=== PATIENT | female | born 1950 | race Caucasian/White ===

== ENCOUNTER 2018-04-12 09:38 | Day surgery (SDC) | payer MEDICARE, SELFPAY ==
[2018-04-12] VITALS (9 sets, daily range): BP systolic 86–116; BP diastolic 50–72; PULSE 65–85; RESP 10–15; TEMP 36.3–36.7; O2SAT 98–100; BMI 25.7
[2018-04-12] MEDS: SODIUM CHLORIDE 0.9% 1,000 ML 200 ML IV ×2 (10:10→13:51)
--- NOTE | 2018-04-12 12:10 | PM.HP.1 ---
History of Present Illness Date Patient Seen: 04/12/18 Time Patient Seen: 12:10 Chief complaint: colonoscopy [id number] Narrative: Patient is woman who last had a colonoscopy 7 years ago. She has had polyps removed in the past. She is here for screening exam. Patient History Medical History Gastroesophageal reflux disease (Chronic) Bursitis (Resolved) Surgical History H/O eye surgery (Resolved) H/O repair of left rotator cuff (Resolved) History of lumbar discectomy (Resolved) Family & Social History Family History: Reviewed 04/12/18 by Anastacio Pichardo MD Social History: household members spouse Tobacco & Substance use: Smoking Status Never smoker Meds Home Medications Medication Instructions Recorded Confirmed Type multivitamin tablet 1 tab PO DAILY 04/11/18 04/11/18 History sulfamethoxazole 800 1 tab PO BID 7 Days #14 tab 04/11/18 Rx mg-trimethoprim 160 mg tablet omeprazole 20 mg PO DAILY 04/12/18 04/12/18 History Allergies Allergy/AdvReac Type Severity Reaction Status Date / Time clindamycin [CLINDAMYCIN] Allergy Severe heart burn Verified 04/12/18 10:10 amoxicillin [AMOXICILLIN] Allergy Mild itchy Verified 04/12/18 10:03 Review of Systems Review of Systems All systems reviewed & are unremarkable except as noted in HPI and below Exam Vital Signs (past 8 hours): - 04/12/18 10:02 Temperature 97.4 F L Pulse Rate 77 Respiratory Rate 15 Blood Pressure 116/72 Pulse Oximetry 99 Oxygen Delivery Method Room Air Narrative Exam Narrative: Operative no apparent distress. Lungs are clear to auscultation no rales or rhonchi heart regular rate and rhythm with no murmur or gallop. Abdomen is protuberant soft nontender without mass. Liver and spleen not enlarged. Patient is alert and oriented x3. Assessment & Plan (1) Screening for colon cancer: Current visit: Yes Status: Acute Plan: Assessment/Plan Narrative: Will perform colonoscopy. I have discussed the procedure and the rationale with the patient including risks of bleeding, perforation which would necessitate a major operation, failure to find remove all lesions and the potential to tattoo. They appeared to understand and wished to proceed.
--- NOTE | 2018-04-12 12:15 | PM.PREOP ---
Pre-operative Note Interval Note Pre-op Check: History & Physical exam performed today H&P completed within 30 days and has changed as indicated here:: None ASA Class (for procedural sedation): I
[2018-04-12] MEDS: MIDAZOLAM 5 MG/5 ML VIAL IV (12:36)
[2018-04-12] MEDS: fentaNYL 250 MCG/5 ML INJ IV (12:37)
--- NOTE | 2018-04-12 12:48 | P.OP.ENDO_ITS ---
Operative Date/Time/Diagnoses Date of procedure: 04/12/18 Time of procedure: 12:46 Pre-op diagnosis: Screening examination. History of polyps. Last exam 7 years ago. Post-op diagnosis: same (Diverticulosis scattered throughout the colon. Internal hemorrhoids.) Procedure & Clinicians Study performed: Colonoscopy Same procedure as scheduled: Yes Indications: Screening Surgeon: Anastacio Pichardo Procedure Notes SCOAP/Timeout: Performed Procedure in detail: The patient was placed in the left lateral decubitus position and underwent IV sedation directed by the surgeon consisting of fentanyl and Versed. Digital exam was unremarkable. The scope was inserted and advanced through the rectum into the sigmoid, descending, transverse, and ascending colon. The patient was noted to have diverticula scattered throughout the colon. The have a his concentration was in the sigmoid colon.. The cecum was reached identified by the ileocecal valve and the appendiceal opening. The ileocecal valve was successfully cannulated. The terminal ileum was normal in appearance. The scope was gradually brought out. No Polyps were found. The scope ultimately was retroflexed in the rectum. The appearance was[ remarkable for moderately large hemorrhoids.]. The scope was removed and the patient tolerated the procedure well Scope withdrawal time: 8 min Sedation minutes: 20 Findings: diverticulosis (Colmenares colonic) and internal hemorrhoids Specimen(s): none sent Complications: none Recommendations: Colonscopy in 5 years (Due to personal history of polyps) Follow up: as needed Disposition: PACU
--- NOTE | 2018-04-12 13:43 | SUR.PHASEII ---
has been dozing, HOB up, coffee given. Oriented, Spouse present.
--- NOTE | 2018-04-12 14:03 | SUR.PHASEII ---
[address] Pichardo regarding hypotension, Pt assymptomatic, color pink, sitting up and talking, drinking coffee, Give IV fluid bolus of 500 ml and then DC per MD. Attempted to edit infusion rate, but unsure how.
--- NOTE | 2018-04-12 14:08 | SUR.PHASEII ---
1335 late entry Drowsy, oriented, denies pain, light-headedness or dizziness. Drinking coffee. No concerns voiced. Wants to eat yi toast and nap.
== END 2018-04-12 14:51 | disposition home or self-care (01) ==
PROVIDERS: Visit Provider Specialist
PROC: 0DJD8ZZ Inspection of Lower Intestinal Tract, Via Natural or Artificial Opening Endoscopic (ICD-10-PCS; CPT 45378; principal; 2018-04-12 10:45)
DX: Z12.11 Encounter for screening for malignant neoplasm of colon (principal); Z86.010 Personal history of colon polyps; K57.30 Diverticulosis of large intestine without perforation or abscess without bleeding; K64.8 Other hemorrhoids
CPT/HCPCS: 45378; 99152; J2250; J3010

== ENCOUNTER → 2018-10-09 07:50 | Outpatient (CLI) | payer MEDICARE, SELFPAY ==
--- NOTE | 2018-10-09 | DI.MG.S_ITS ---
BILATERAL DIGITAL SCREENING MAMMOGRAM 3D/2D WITH CAD: 10/09/2018 CLINICAL: Routine screening. Family history of breast cancer. Comparison is made to exams dated: 08/21/2017 mammogram, 07/06/2016 mammogram, and 02/02/2015 mammogram - [facility]. There are scattered fibroglandular elements in both breasts. Current study was also evaluated with a Computer Aided Detection (CAD) system. No significant masses, calcifications, or other findings are seen in either breast. There has been no significant interval change. IMPRESSION: NEGATIVE There is no mammographic evidence of malignancy. A 1 year screening mammogram is recommended. This exam was interpreted at Station ID: [id number]. NOTE: For mammograms, a report in lay terms will be sent to the patient. Approximately 15% of breast malignancies will not be visualized mammographically. In the management of a palpable breast mass, a negative mammogram must not discourage biopsy of a clinically suspicious lesion. Electronically Signed By: Mandi kamara/ellen:10/09/2018 10:17:14 letter sent: Normal Exam ACR BI-RADS Category 1: Negative [id number]
== END ==
DX: Z12.31 Encounter for screening mammogram for malignant neoplasm of breast (principal); Z80.3 Family history of malignant neoplasm of breast
CPT/HCPCS: 77063; 77067

== ENCOUNTER → 2019-01-01 11:01 | Outpatient (CLI) | payer MEDICARE, SELFPAY ==
--- NOTE | 2019-01-01 | DI.RAD.S_ITS ---
PROCEDURE: FL HIP INJECTION MR/CT RT INDICATIONS: Patient reports a history of right hip pain and posterior right lower back pain. TECHNIQUE: The indications, alternatives, benefits, risks, and complications of the procedure were explained to the patient. Written informed consent was obtained and placed in the chart. The hip was examined fluoroscopically with the legs fixed in slight internal rotation, and a site for needle placement chosen for entry into the hip joint from an anterior approach. Care was taken to locate the common femoral artery and vein beforehand. The skin was prepped and draped in a sterile fashion, and 1% Lidocaine infiltrated from skin down to joint capsule. A spinal needle was inserted into the joint, and a small amount of iodinated contrast media injected to confirm intra-articular placement of the needle tip. This was followed by approximately 10 mL dilute solution of a gadolinium containing MR contrast agent. The needle was removed and a dressing was applied. After the procedure, the patient reported a sensation of right thigh numbness when she said made walking difficult. The patient denied any pain or other symptomatology. The patient was given postprocedural instructions and taken to the MR suite by wheelchair for an MRI. The patient was reevaluated by Dr. Kramer approximately 30 minutes post procedure, after her MRI had been completed. Patient reported the sensation of thigh numbness with decreased from before, with the patient now being able to carefully stand. Patient was advised not to drive, and subsequently called her to pick her up. The patient was advised to followup with her referring clinical provider, and the patient was also advised to monitor her symptoms and to go to an emergency department for evaluation should her symptoms worsen or new symptoms develop. FINDINGS: A single fluoroscopic spot image demonstrates intra-articular location of injected iodinated contrast. There is also a small volume of contrast that is external to the patient. IMPRESSION: Fluoroscopically guided administration of dilute Gadolinium solution into the right hip joint for MR arthrogram. Dictated by: Cecil Kramer M.D. on 01/01/2019 at 14:02 Approved by: Cecil Kramer M.D. on 01/01/2019 at 14:13
--- NOTE | 2019-01-01 11:03 | DI.MRI.S_ITS ---
PROCEDURE: MR HIP RT W CON INDICATIONS: Rt hip pain, Rule out Labral tear TECHNIQUE: After the administration of 10 mL of dilute intra-articular Gadolinium contrast, coronal STIR of the bony pelvis; coronal and oblique axial T1 spin echo with fat saturation, axial T2 fast spin echo with fat saturation, sagittal T1 spin echo with and without fat saturation of the involved hip. COMPARISON: None. FINDINGS: Image quality: Diagnostic. Bones and joints: There is no acute fracture, dislocation, or suspicious osseous lesion identified involving the osseous structures of the right hip. Moderate degenerative changes of the right hip are present with heterogeneity of the superior hyaline articular cartilage and mild associated irregularity of the cartilage. There likely are small defects of the hyaline articular cartilage. Moderate-sized peripheral osteophytes are present involving the femoral head into the acetabulum. No evidence of avascular necrosis is appreciated. There is adequate distention of the right hip joint with the injected contrast. No loose intra-articular joint bodies are appreciated. The L. single left at the right femoral head measures approximately 58?. The remainder of the image osseous structures of the included pelvis demonstrate bony fusion of the L4-5 vertebral bodies, which appears to be congenital, but is not well characterized. There appears to be fusion of the L5 transverse processes with the adjacent sacral ala. There are [id number] degenerative changes of the lumbosacral spine, pubis symphysis, and left hip. No acute pelvic fractures or suspicious osseous lesions are evident. Labrum: There is a moderate to large superior labral tear extending from the 9 o'clock position (anterior) through the 12 o'clock position (superior) and to at least the 3 o'clock position (posterior). No detectable fragments are identified. Tendons and ligaments: The ligamentum teres is somewhat heterogeneous, but probably intact. There is increased signal and mild thickening involving the distal right gluteus medius angle is minimus tendons. No significant fluid is contained within the greater trochanteric bursa. However, there is mild thickening of the bursa. Mild increased signal is noted involving the proximal right hamstrings tendons. There is also slight increased signal identified involving the distal iliopsoas tendons. Contrast material extending into the bursa is likely iatrogenic related to the injection. Soft tissues: Visualized muscles demonstrate normal bulk and internal signal. Quadratus femoris muscle demonstrates no internal edema to suggest ischiofemoral impingement. The proximal sciatic neurovascular bundle appears normal adjacent to the hamstring tendons. No free pelvic fluid. Bladder wall thickness is normal. There appears to be fibroids within the uterus, which are not well characterized. Genitourinary structures and bowel loops appear normal where visualized. IMPRESSION: 1. Moderate degenerative changes of the right hip without an acute fracture. 2. Moderate to large superior right acetabular labral tear. 3. Mild distal right gluteus medius and gluteus minimus tendinopathy. 4. Mild proximal hamstrings and distal iliopsoas tendinopathy. 5. 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 6. Probable uterine fibroids. The need for better evaluation utilizing pelvic ultrasonography may be determined clinically. Dictated by: Anmol Gamboa M.D. on 01/01/2019 at 16:07 Approved by: Anmol Gamboa M.D. on 01/01/2019 at 16:14
== END ==
PROVIDERS: PCP Family Medicine; Visit Provider Family Medicine
DX: M25.551 Pain in right hip (principal); S73.191A Other sprain of right hip, initial encounter; M16.11 Unilateral primary osteoarthritis, right hip; M67.88 Other specified disorders of synovium and tendon, other site; Z98.1 Arthrodesis status
CPT/HCPCS: 27093; 73722; 77002

== ENCOUNTER → 2019-02-26 14:04 | Outpatient (CLI) | payer MEDICARE, SELFPAY ==
--- NOTE | 2019-02-26 14:08 | DI.RAD.S_ITS ---
PROCEDURE: XR FOOT LT MIN 3V INDICATIONS: L foot pain TECHNIQUE: 3 views of the foot were acquired. COMPARISON: None. FINDINGS: Bones: No fractures or dislocations. No suspicious bony lesions. Soft tissues: No tibiotalar joint effusion. Achilles tendon appears normal. IMPRESSION: No trauma found, source of asymmetric left foot pain is not identified. Dictated by: Lacho Waite M.D. on 02/26/2019 at 15:06 Approved by: Lacho Waite M.D. on 02/26/2019 at 15:06
== END ==
PROVIDERS: PCP Family Medicine; Visit Provider Family Medicine
DX: M79.672 Pain in left foot (principal)
CPT/HCPCS: 73630

== ENCOUNTER → 2019-03-04 07:46 | Outpatient (CLI) | payer MEDICARE, SELFPAY ==
--- NOTE | 2019-03-04 07:48 | DI.MRI.S_ITS ---
PROCEDURE: MR LUMBAR SPINE WO CON INDICATIONS: Ongoing right hip pain, sometimes with radiation into right leg. As requested by PT. TECHNIQUE: Noncontrast sagittal T1 spin echo and T2 fast echo, sagittal STIR, axial T1 and T2 fast spin echo through the lumbar spine. In cases with scoliosis, additional coronal T2 fast spin echo may be performed. COMPARISON: None. FINDINGS: Image quality: Excellent. Alignment and Curvature: There is mild grade 1 anterolisthesis seen at the L3-L4 level. No definite associated pars defects are seen. Bone Marrow: Marrow is of normal overall signal. No acute vertebral body compression fractures. Spinal Cord: Conus medullaris terminates at the T12-L1 level. Visualized cord demonstrates normal signal and size. Paraspinous Soft Tissues: No paravertebral masses. T12-L1: Normal appearance. L1-L2: Normal appearance. L2-L3: The disc height is well-preserved. Loss of disc signal is seen at this level. Moderate disc bulge is seen, which is eccentric to the right. Moderate facet joint hypertrophy is seen. There is associated moderate hypertrophy of the ligamentum flavum. There is mild to moderate left-sided and moderate right-sided neural foraminal narrowing. Moderate central canal narrowing is seen, as on series 5 image 14. L3-L4: The disc height is well-preserved. Loss of disc signal is seen at this level. Mild to moderate disc bulge is seen. Prominent facet hypertrophy is seen, with associated moderate hypertrophy of the ligamentum flavum. There is at least moderate bilateral neural foraminal narrowing seen, left worse than right. There is a mild degree of compression seen upon the exiting left L3 nerve root. Moderate to severe central canal narrowing is seen. L4-L5: Remote postoperative change is seen at this level, with discectomy and partial vertebral body fusion. There has been removal of portions of the posterior elements. Moderate bilateral neural foraminal narrowing is seen. The central canal is widely patent. L5-S1: The disc height is well-preserved. Loss of disc signal is seen at this level. No significant disc bulge is seen. Minimal to mild facet hypertrophy is seen. No significant neural foraminal or central canal narrowing can be seen. IMPRESSION: Remote postoperative change at the L4-L5 level, with discectomy and removal of portions of the posterior elements. Vertebral body fusion can be seen at this level. Degenerative changes are seen, which are most prominent at the L3-L4 level, where there is grade 1 anterolisthesis, moderate to severe central canal narrowing, at least moderate bilateral neural foraminal narrowing, and a mild degree of compression upon the exiting left L3 nerve root. Dictated by: Jr Bhatia M.D. on 03/04/2019 at 9:43 Approved by: Jr Bhatia M.D. on 03/04/2019 at 9:49
== END ==
PROVIDERS: PCP Family Medicine; Visit Provider Family Medicine
DX: M25.551 Pain in right hip (principal); M47.26 Other spondylosis with radiculopathy, lumbar region; M43.16 Spondylolisthesis, lumbar region
CPT/HCPCS: 72148

== ENCOUNTER → 2019-03-13 07:15 | Outpatient (CLI) | payer MEDICARE, SELFPAY ==
[2019-03-13 08:09] LABS: Add Manual Diff / Slide Review NO; Basophils Absolute Auto 0 /uL (0-100); Basophils Percent Auto 0.8 % (0-2); Eosinophils Absolute Auto 200 /uL (0-450); Eosinophils Percent Auto 4.2 % (2-4); Hematocrit 34.9 % (36-46); Hemoglobin 11.9 g/dL (12.0-16.0); Lymphocytes Absolute Auto 1800 /uL (1100-4500); Mean Corpuscular HGB Conc 34.1 % (30-36); Mean Corpuscular Hemoglobin 30.1 PG (26-34); Mean Corpuscular Volume 88.4 fL (80-100); Monocytes Absolute Auto 400 /uL (0-900); Monocytes Percent Auto 8.5 % (3-14); Neutrophils Absolute Auto 2200 /uL (1500-7000); Neutrophils Percent Auto 47.5 % (50-75); Platelet Count 336 X10^3/uL (150-400); Red Blood Cell Count 3.95 X10^6/uL (4.0-5.2); Red Cell Distribution Width 14.4 % (11.6-14.8); White Blood Cell Count 4.7 X10^3/uL (4.5-11.0)
[2019-03-13 08:14] LABS: Alanine Aminotransferase 30 IU/L (9-52); Albumin 4.3 g/dL (3.5-5.0); Albumin Globulin Ratio 1.3 (1.0-2.8); Alkaline Phosphatase 47 U/L (38-126); Aspartate Aminotransferase 41 IU/L (14-36); BUN Creatinine Ratio 33.8 (6-22); Bilirubin Total 0.7 mg/dL (0.2-1.3); Blood Urea Nitrogen 27 mg/dL (7-17); Calcium 9.4 mg/dL (8.4-10.2); Carbon Dioxide 31 mmol/L (22-32); Chloride 103 mmol/L (98-107); Cholesterol 261 mg/dL (140-199); Estimated Glomerular Filt Rate > 60.0 mL/min (>60); Globulin 3.3 g/dL (1.7-4.1); Glucose 92 mg/dL (80-110); HDL Cholesterol 50 mg/dL (40-60); HEMOLYSIS < 15 (0-50); LDL Cholesterol Calculated 188 mg/dL (<100); Potassium 4.5 mmol/L (3.4-5.1); Sodium 140 mmol/L (137-145); Total Protein 7.6 g/dL (6.3-8.2); Triglycerides 116 mg/dL (35-150)
[2019-03-13 08:22] LABS: Appearance Urine UA CLEAR; Bilirubin Urine UA NEGATIVE (NEGATIVE); Color Urine UA YELLOW; Glucose Urine UA NEGATIVE (Negative); Ketones Urine UA NEGATIVE (NEGATIVE); Leukocyte Esterase Urine UA NEGATIVE (NEGATIVE); Nitrite Urine UA NEGATIVE (Negative); Occult Blood Urine UA 2+ (Negative); Protein Urine UA NEGATIVE (Negative); Specific Gravity Urine UA 1.025 (1.000-1.035); Urobilinogen Urine UA 0.2 E.U./dL (0.2)
[2019-03-13 09:10] LABS: Thyroid Stimulating Hormone 6.17 uIU/mL (0.47-4.68)
== END ==
PROVIDERS: PCP Family Medicine; Visit Provider Family Medicine
DX: Z13.220 Encounter for screening for lipoid disorders (principal); Z13.29 Encounter for screening for other suspected endocrine disorder; Z51.81 Encounter for therapeutic drug level monitoring
CPT/HCPCS: 36415; 80053; 80061; 81003; 84443; 85025

== ENCOUNTER → 2019-03-20 12:11 | Outpatient (CLI) | payer MEDICARE, SELFPAY ==
--- NOTE | 2019-03-20 | DI.MRI.S_ITS ---
PROCEDURE: MRFOOT LT WO CON INDICATIONS: Other specified joint disorders, unspecified joint TECHNIQUE: Noncontrast sagittal T1 spin echo and T2 fast spin echo with fat saturation, long-axis T1 spin echo and T2 fast spin echo with fat saturation, short-axis T1 spin echo and T2 fast spin echo with fat saturation through the forefoot. COMPARISON: [facility], MR, FOOT W&WO CONTRAST, 01/16/2017, 14:16. FINDINGS: Image quality: Diagnostic. Bones and joints: No acute fracture, dislocation, or suspicious osseous lesions identified involving the osseous structures of the knee left midfoot or forefoot. Mild to moderate degenerative changes are noted involving the 1st metatarsophalangeal joint. There is a subtle erosion evident along the medial aspect of the 1st metatarsal head with associated reactive marrow edema. No hallux valgus is present. Mild degenerative changes are noted involving the interphalangeal joints of the toes. There is degenerative change evident along the medial aspect of the cuboid. There are mild degenerative changes of the talonavicular joint. No significant joint effusions are appreciated. Bony alignment is within normal limits. Soft tissues: Soft tissue edema is identified overlying the forefoot, which is centered about the 1st metatarsophalangeal joint. No drainable or loculated fluid collections are present. No soft tissue masses are evident. The intrinsic muscles of the foot are within normal limits without significant atrophy. The flexor and extensor tendons are intact. Specifically, the distal margin of the flexor hallucis longus tendon appears to be intact. There is fluid contained within the flexor hallucis longus tendon sheath. The remainder of the tendons of the foot are within normal limits. The Lisfranc ligament is not adequately seen. IMPRESSION: 1. Mild to flexor hallucis longus tenosynovitis. There is no significant tearing or tendinopathy of the imaged portions of the tendon. 2. Moderate degenerative changes of the 1st metatarsophalangeal joint. A subtle overhanging erosion is present, which does raise the suspicion for possible gout and clinical correlation is recommended. Dictated by: Anmol Gamboa M.D. on 03/20/2019 at 13:11 Approved by: Anmol Gamboa M.D. on 03/20/2019 at 13:27
== END ==
PROVIDERS: PCP Family Medicine; Visit Provider Podiatrist
DX: M25.80 Other specified joint disorders, unspecified joint (principal); M65.872 Other synovitis and tenosynovitis, left ankle and foot
CPT/HCPCS: 73718

== ENCOUNTER → 2019-05-08 14:00 | Outpatient (CLI) | payer MEDICARE, SELFPAY ==
[2019-05-08 14:46] LABS: BUN Creatinine Ratio 32.9 (6-22); Blood Urea Nitrogen 23 mg/dL (7-17); Estimated Glomerular Filt Rate > 60.0 mL/min (>60)
== END ==
PROVIDERS: Family Provider Family Medicine; PCP Family Medicine; Visit Provider Psychiatry & Neurology Neurology
DX: Z51.81 Encounter for therapeutic drug level monitoring (principal)
CPT/HCPCS: 36415; 82565; 84520

== ENCOUNTER → 2019-06-14 08:17 | Outpatient (CLI) | payer MEDICARE, SELFPAY ==
[2019-06-14 09:18] LABS: Alanine Aminotransferase 47 IU/L (9-52); Albumin 4.3 g/dL (3.5-5.0); Albumin Globulin Ratio 1.3 (1.0-2.8); Alkaline Phosphatase 51 U/L (38-126); Aspartate Aminotransferase 56 IU/L (14-36); BUN Creatinine Ratio 32.9 (6-22); Bilirubin Total 0.8 mg/dL (0.2-1.3); Blood Urea Nitrogen 23 mg/dL (7-17); Calcium 9.6 mg/dL (8.4-10.2); Carbon Dioxide 30 mmol/L (22-32); Chloride 102 mmol/L (98-107); Cholesterol 173 mg/dL (140-199); Estimated Glomerular Filt Rate > 60.0 mL/min (>60); Globulin 3.2 g/dL (1.7-4.1); Glucose 88 mg/dL (80-110); HDL Cholesterol 52 mg/dL (40-60); HEMOLYSIS < 15 (0-50); LDL Cholesterol Calculated 99 mg/dL (<100); Potassium 4.9 mmol/L (3.4-5.1); Sodium 141 mmol/L (137-145); Total Protein 7.5 g/dL (6.3-8.2); Triglycerides 110 mg/dL (35-150)
[2019-06-14 09:35] LABS: Free T3, Triiodothyronine Free 3.23 pg/mL (2.77-5.27); Free T4, Direct Thyroxine 0.98 ng/dL (0.78-2.19)
[2019-06-14 09:48] LABS: Thyroid Stimulating Hormone 2.02 uIU/mL (0.47-4.68)
== END ==
PROVIDERS: PCP Family Medicine; Visit Provider Family Medicine
DX: E03.9 Hypothyroidism, unspecified (principal); E78.5 Hyperlipidemia, unspecified; M43.10 Spondylolisthesis, site unspecified; R79.89 Other specified abnormal findings of blood chemistry
CPT/HCPCS: 36415; 80053; 80061; 84439; 84443; 84481

== ENCOUNTER → 2019-07-29 07:58 | Outpatient (CLI) | payer MEDICARE, SELFPAY ==
[2019-07-29 08:34] LABS: Add Manual Diff / Slide Review NO; Basophils Absolute Auto 0 /uL (0-100); Basophils Percent Auto 0.8 % (0-2); Eosinophils Absolute Auto 100 /uL (0-450); Eosinophils Percent Auto 2.6 % (2-4); Hematocrit 36.2 % (36-46); Hemoglobin 12.5 g/dL (12.0-16.0); Lymphocytes Absolute Auto 1800 /uL (1100-4500); Lymphocytes Percent Auto 38.7 % (25-40); Mean Corpuscular HGB Conc 34.4 % (30-36); Mean Corpuscular Hemoglobin 30.4 PG (26-34); Mean Corpuscular Volume 88.3 fL (80-100); Monocytes Absolute Auto 500 /uL (0-900); Monocytes Percent Auto 9.9 % (3-14); Neutrophils Absolute Auto 2200 /uL (1500-7000); Platelet Count 346 X10^3/uL (150-400); White Blood Cell Count 4.6 X10^3/uL (4.5-11.0)
[2019-07-29 09:00] LABS: Alanine Aminotransferase 28 IU/L (9-52); Albumin 4.7 g/dL (3.5-5.0); Albumin Globulin Ratio 1.4 (1.0-2.8); Alkaline Phosphatase 58 U/L (38-126); Aspartate Aminotransferase 41 IU/L (14-36); Bilirubin Total 0.7 mg/dL (0.2-1.3); Bilirubin Unconjugated 0.6 mg/dL (0.0-1.1); Cholesterol 218 mg/dL (140-199); Globulin 3.3 g/dL (1.7-4.1); HDL Cholesterol 47 mg/dL (40-60); HEMOLYSIS < 15 (0-50); LDL Cholesterol Calculated 149 mg/dL (<100); Triglycerides 112 mg/dL (35-150)
[2019-08-01 09:16] LABS: Hepatitis A Antibody IgM NONREACTIVE; Hepatitis Acute Panel Interp 0.01; Hepatitis B Core Antibody IgM NONREACTIVE; Hepatitis B Surface Antigen NONREACTIVE; Hepatitis C Antibody NONREACTIVE
== END ==
PROVIDERS: PCP Family Medicine; Visit Provider Family Medicine
DX: E03.9 Hypothyroidism, unspecified (principal); E78.5 Hyperlipidemia, unspecified; R68.89 Other general symptoms and signs; R74.8 Abnormal levels of other serum enzymes
CPT/HCPCS: 36415; 80061; 80074; 80076; 85025

== ENCOUNTER 2019-08-11 08:05 | Emergency (ER) | payer MEDICARE, SELFPAY ==
[2019-08-11 08:05] VITALS: BP 129/65; PULSE 72; RESP 18; TEMP 36.7; O2SAT 99; BMI 26.0
--- NOTE | 2019-08-11 08:31 | DI.RAD.S_ITS ---
PROCEDURE: XR CHEST 1V INDICATIONS: chest pain TECHNIQUE: One view of the chest was acquired. COMPARISON: None. FINDINGS: Surgical changes and devices: None. Lungs and pleura: Lungs are clear. No pleural effusions or pneumothorax. Mediastinum: The cardiac contours are within normal limits. The aorta demonstrates calcification and tortuosity. Bones and chest wall: No suspicious bony lesions. Age-appropriate bony degenerative changes are seen. Overlying soft tissues appear unremarkable. IMPRESSION: Unremarkable portable chest for age. Dictated by: Jr Bhatia M.D. on 08/11/2019 at 8:16 Approved by: Jr Bhatia M.D. on 08/11/2019 at 8:17
[2019-08-11 09:06] LABS: Add Manual Diff / Slide Review NO; Basophils Absolute Auto 0 /uL (0-100); Basophils Percent Auto 0.9 % (0-2); Eosinophils Absolute Auto 100 /uL (0-450); Eosinophils Percent Auto 2.4 % (2-4); Hematocrit 33.5 % (36-46); Hemoglobin 11.5 g/dL (12.0-16.0); Lymphocytes Absolute Auto 1500 /uL (1100-4500); Lymphocytes Percent Auto 38.3 % (25-40); Mean Corpuscular HGB Conc 34.2 % (30-36); Mean Corpuscular Hemoglobin 30.1 PG (26-34); Monocytes Absolute Auto 400 /uL (0-900); Monocytes Percent Auto 9.6 % (3-14); Neutrophils Absolute Auto 2000 /uL (1500-7000); Neutrophils Percent Auto 48.8 % (50-75); Platelet Count 310 X10^3/uL (150-400); Red Blood Cell Count 3.81 X10^6/uL (4.0-5.2); Red Cell Distribution Width 13.6 % (11.6-14.8)
[2019-08-11 09:13] LABS: Prothrombin Time 11.7 SECONDS (10.1-12.7)
[2019-08-11 09:15] LABS: PTT Partial Thromboplastin Tim 32 SECONDS (26.4-36.2)
--- NOTE | 2019-08-11 09:26 | ED.CHESTPAIN ---
HPI - Chest Pain General Chief Complaint: Chest Pain Stated Complaint: upper arm pain,pain in chest/back,dizzy Time Seen by Provider: 08/11/19 09:06 Source: patient Mode of arrival: Family Vehicle Limitations: no limitations History of Present Illness HPI narrative: 69-year-old female comes emergency department with complaint of the last 1 or 2 weeks that have made her kind anxious. She states yesterday she went for 3 mi walk which developed some epigastric back pain radiating towards her back. Today she still has epigastric discomfort but states that it has been present since yesterday his not as intense but never totally resolved. Has not been waxing and waning in intensity. Nothing seems to exacerbate it otherwise. She typically goes for walks and does not have symptoms. She states that she has been feeling a little bit more fatigued. She has not really felt more short of breath but did have to ask her friends on Sunday to walk slower because she felt short of breath. She denies any sweatiness or diaphoresis. She states she has had some discomfort in both upper extremities in her thighs but she was on a statin for about a month, it was stopped as she was switched to a secondary statin Um those symptoms sort improved but then started to recur. She does not relate the upper extremity discomfort to the epigastric discomfort. She also has been started on omeprazole twice daily which seems to be helping. Patient states she was started on cholesterol medication 2 months ago, she takes medication for GERD, she takes levothyroxine. No hypertension or dyslipidemia. She has not had any rash, no syncope. She has history rotator cuff surgery and a cyst on her toe that was excised. Her father had a stroke in his 70s. Her mom has known hypertension. She has a sister with diabetes who is overweight been treated for lymphoma she quit smoking in 1995, drinks alcoholic drinks 4-5 times weekly and denies any illicit. Bhakti Senior is her primary care physician. Related Data Home Medications Medication Instructions Recorded Confirmed multivitamin 1 tab PO DAILY 04/11/18 06/25/19 omeprazole 20 mg PO DAILY 04/12/18 06/25/19 fluticasone propionate 50 2 spray NASAL DAILY 03/21/19 06/25/19 mcg/actuation nasal spray,suspension loratadine 10 mg tablet 10 mg PO DAILY 03/21/19 06/25/19 Previous Rx's Medication Instructions Recorded lovastatin 20 mg tablet 20 mg PO DAILY #90 tab 06/25/19 ranitidine HCl 150 mg tablet 150 mg PO BEDTIME #30 tab 06/25/19 levothyroxine 50 mcg tablet 50 mcg PO DAILY #90 tab 07/21/19 Allergies Allergy/AdvReac Type Severity Reaction Status Date / Time clindamycin [CLINDAMYCIN] Allergy Severe heart burn Verified 06/25/19 13:41 amoxicillin [AMOXICILLIN] Allergy Mild itchy Verified 06/25/19 13:41 Review of Systems Review of Systems ROS Unobtainable: All systems reviewed & are unremarkable except as noted in HPI and below Patient History Medical History Bursitis (Resolved) Gastroesophageal reflux disease (Chronic) Surgical History H/O eye surgery (Resolved) H/O repair of left rotator cuff (Resolved) History of lumbar discectomy (Resolved) Family History (Updated 08/11/19 @ 10:11 by Negrita Dunaway DO) Father CVA (cerebral vascular accident) Social History household members: spouse Smoking Status: Former smoker alcohol intake frequency: 0-2 drinks per day Substance Use Type: does not use Exam Narrative Exam Narrative: GENERAL: Alert and oriented x three, nourished, well-appearing female in no acute distress. HEENT: Head normocephalic, atraumatic, EOMI, pupils reactive, face symmetric, moist mucous membranes NECK: Supple, full range of motion CARDIOVASCULAR: Regular rate and rhythm without murmurs, rubs or gallops. RESPIRATORY: Breath sounds equal bilaterally, no wheezes rales or rhonchi. ABDOMEN: Soft, nontender. Normoactive bowel sounds all 4 quadrants. No guarding or rebound, rigidity, no mass : No CVA tenderness EXTREMITIES: Normal range of motion, no clubbing or edema. Neurovascularly intact NEUROLOGICAL: Cranial nerves II through XII grossly intact. Moving all extremities SKIN: Warm, dry, no petechiae, no rashes or lesions. Initial Vital Signs Initial Vital Signs: Vital Signs Temperature 98.0 F 08/11/19 08:05 Pulse Rate 72 08/11/19 08:05 Respiratory Rate 18 11/11/19 08:05 Blood Pressure 129/65 08/11/19 08:05 Pulse Oximetry 99 08/11/19 08:05 Scores HEART Score Heart Score history: Slightly Suspicious Heart Score EKG: Normal Heart Score Age: > or = 65 years old Heart Score risk factors: 1-2 risk factors Heart Score troponin: < or = to normal limit Heart Score Total: 3 Course Orders Ordered: ED Orders 08/11/19 08:31 XR chest 1V Stat EKG-12 Lead Stat 08/11/19 08:43 Complete Blood Count AUTO DIFF Stat Comprehensive Metabolic Panel Stat Lipase Stat Partial Thromboplastin Time Stat Prothrombin Time INR Stat Troponin & CK Cardiac Panel Stat Vital Signs Vital signs: Vital Signs - 8 hr 08/11/19 08:05 08/11/19 10:00 Temperature 98.0 F Pulse Rate 72 70 Respiratory Rate 18 20 Blood Pressure 129/65 Blood Pressure [Left Arm] 101/50 L Pulse Oximetry 99 100 MDM - Chest Pain Lab Data Attestation: I reviewed the patient's lab results. Result diagrams: 08/11/19 08:43 08/11/19 08:43 Labs: Lab Results 08/11/19 08/11/19 08/11/19 Range/Units 08:43 08:43 08:43 WBC 4.0 L (4.5-11.0) X10^3/uL RBC 3.81 L (4.0-5.2) X10^6/uL Hgb 11.5 L (12.0-16.0) g/dL Hct 33.5 L (36-46) % MCV 88.0 (80-100) fL MCH 30.1 (26-34) PG MCHC 34.2 (30-36) % RDW 13.6 (11.6-14.8) % Plt Count 310 (150-400) X10^3/uL Neut % (Auto) 48.8 L (50-75) % Lymph % (Auto) 38.3 (25-40) % Howard % (Auto) 9.6 (3-14) % Eos % (Auto) 2.4 (2-4) % Baso % (Auto) 0.9 (0-2) % Neut # (Auto) 2000 (8692-2167) /uL Lymph # (Auto) 1500 (0784-8393) /uL Howard # (Auto) 400 (0-900) /uL Eos # (Auto) 100 (0-450) /uL Baso # (Auto) 0 (0-100) /uL PT 11.7 (10.1-12.7) SECONDS INR 1.0 (0.9-1.3) APTT 32 (26.4-36.2) SECONDS Sodium 139 (137-145) mmol/L Potassium 4.2 (3.4-5.1) mmol/L Chloride 102 (98-107) mmol/L Carbon Dioxide 30 (22-32) mmol/L BUN 23 H (7-17) mg/dL Creatinine 0.80 (0.52-1.04) mg/dL Estimated GFR > 60.0 (>60) mL/min BUN/Creatinine Ratio 28.8 H (6-22) Glucose 95 (80-110) mg/dL Calcium 9.5 (8.4-10.2) mg/dL Total Bilirubin 0.8 (0.2-1.3) mg/dL AST 43 H (14-36) IU/L ALT 27 (<35) IU/L Alkaline Phosphatase 49 (38-126) U/L Total Creatine Kinase 291 H (30-135) U/L CK-MB (CK-2) 3.24 H (<2.37) ng/mL CK-MB (CK-2) Rel Index 1.1 L (1.5-5.0) % Troponin I < 0.012 (0.01-0.034) ng/mL Total Protein 7.2 (6.3-8.2) g/dL Albumin 4.3 (3.5-5.0) g/dL Globulin 2.9 (1.7-4.1) g/dL Albumin/Globulin Ratio 1.5 (1.0-2.8) Lipase 58 (23-300) U/L Imaging Data Chest x-ray: Radiologist's impression: Kya Lentz 69 F [address] [address] XRay Report Signed Patient: Kya Lentz LMR#: [id number] : 1950Acct:[id number] Age/Sex: 69 / FDate of Service: 08/11/19 Loc: ED Accession Number: [id number] Procedure: XR chest 1V Ordering Provider: Negrita Dunaway D.O. PROCEDURE: XR CHEST 1V INDICATIONS: chest pain TECHNIQUE: One view of the chest was acquired. COMPARISON: None. FINDINGS: Surgical changes and devices: None. Lungs and pleura: Lungs are clear. No pleural effusions or pneumothorax. Mediastinum: The cardiac contours are within normal limits. The aorta demonstrates calcification and tortuosity. Bones and chest wall: No suspicious bony lesions. Age-appropriate bony degenerative changes are seen. Overlying soft tissues appear unremarkable. IMPRESSION: Unremarkable portable chest for age. Dictated by: Jr Bhatia M.D. on 08/11/2019 at 8:16 Approved by: Jr Bhatia M.D. on 08/11/2019 at 8:17 ECG Data Attestation: I personally reviewed and interpreted this ECG as follows: Prior ECG tracings: not available for review Interpretation: Sinus rhythm rate of 71 P are 182 QRS is 79 and QTC of [address] elevation or depression. MDM Narrative Medical decision making narrative: Patient comes in, she has a mild anemia which appears at baseline. Her total CK is elevated at 291 but she was recently started on a statin in the last 2 months was switched secondary to myalgias and continues to have myalgias with the new statin to my suspicion is that this may be the cause of that elevation. Troponin is negative, lipase is negative with no other acute findings. EKG shows sinus rhythm with a chest x-ray that is normal. patient has a constellation of symptoms some possibly secondary to GERD which she states her epigastric pain has been improving since she has been on the omeprazole. She has some symptoms that could be concerning for cardiac cause. Discussed with patient observation versus home, she has had almost 24 hours of epigastric discomfort with a negative troponin. Patient elected to do outpatient follow-up rather than observation. Spoke with Dr. Vick who will help patient get set up for stress testing street as Bhakti Senior is out of the office. Discharge Plan Departure Patient Disposition: Home Clinical Impression: Atypical chest pain Discharge Date/Time: 08/11/19 11:06 Instructions: DI for Atypical Chest Pain Activity Restrictions/Additional Instructions: Follow-up with your primary care physician in the next 24-48 hours for recheck and discussion of stress testing. Continue home medications as prescribed. I would recommend decreasing your physical activity until seen by primary care. Her creatinine kinase is slightly elevated today this could be secondary to her in the cause of her myalgias in your arms and thighs. You appear to have a mild anemia although this appears to be baseline with her old labs. Return to the emergency department for new or worsening symptoms, lightheadedness, passing out, diaphoresis, new shortness of breath, worsening symptoms, persistent vomiting, black or bloody stools or other new or concerning symptoms. Prescriptions: No Action multivitamin tablet 1 tab PO DAILY RF: 0 levothyroxine [Synthroid] 50 mcg tablet 50 mcg PO DAILY Qty: 90 RF: 3 loratadine [Claritin] 10 mg tablet 10 mg PO DAILY RF: 0 fluticasone propionate [Flonase Allergy Relief] 50 mcg/actuation spray,suspension 2 spray NASAL DAILY RF: 0 lovastatin 20 mg tablet 20 mg PO DAILY Qty: 90 RF: 1 ranitidine HCl [Zantac] 150 mg tablet 150 mg PO BEDTIME Qty: 30 RF: 2 omeprazole 20 mg Capsule,Delayed Release(Dr/Ec) 20 mg PO DAILY RF: 0 Referrals: Bhakti Senior DO [Primary Care Provider] -
[2019-08-11 09:27] LABS: Alanine Aminotransferase 27 IU/L (<35); Albumin 4.3 g/dL (3.5-5.0); Albumin Globulin Ratio 1.5 (1.0-2.8); Alkaline Phosphatase 49 U/L (38-126); Aspartate Aminotransferase 43 IU/L (14-36); BUN Creatinine Ratio 28.8 (6-22); Bilirubin Total 0.8 mg/dL (0.2-1.3); Blood Urea Nitrogen 23 mg/dL (7-17); Calcium 9.5 mg/dL (8.4-10.2); Carbon Dioxide 30 mmol/L (22-32); Chloride 102 mmol/L (98-107); Creatine Kinase 291 U/L (30-135); Estimated Glomerular Filt Rate > 60.0 mL/min (>60); Globulin 2.9 g/dL (1.7-4.1); Glucose 95 mg/dL (80-110); HEMOLYSIS < 15 (0-50); Lipase 58 U/L (23-300); Potassium 4.2 mmol/L (3.4-5.1); Sodium 139 mmol/L (137-145); Total Protein 7.2 g/dL (6.3-8.2)
[2019-08-11 09:36] LABS: Troponin I < 0.012 ng/mL (0.01-0.034)
[2019-08-11 09:42] LABS: CKMB % Relative Index 1.1 % (1.5-5.0); Creatine Kinase MB 3.24 ng/mL (<2.37)
[2019-08-11 10:00] VITALS: BP 101/50; PULSE 70; RESP 20; O2SAT 100
[2019-08-11 11:06] VITALS: BP 111/64; PULSE 72; RESP 18; O2SAT 99
== END 2019-08-11 11:06 | disposition home or self-care (01) ==
PROVIDERS: Emergency Provider Emergency Medicine; PCP Family Medicine
DX: R07.89 Other chest pain (principal); R79.89 Other specified abnormal findings of blood chemistry
CPT/HCPCS: 36415; 71045; 80053; 82550; 82553; 83690; 84484; 85025; 85610; 85730; 93005; 99283; 99285

== ENCOUNTER → 2019-10-13 14:50 | Outpatient (CLI) | payer MEDICARE, SELFPAY ==
--- NOTE | 2019-10-13 | DI.MG.S_ITS ---
BILATERAL DIGITAL SCREENING MAMMOGRAM 3D/2D WITH CAD: 10/13/2019 CLINICAL: Routine screening. Family history of breast cancer. Comparison is made to exams dated: 10/09/2018 mammogram - [facility], 08/21/2017 mammogram, 07/06/2016 mammogram, and 02/02/2015 mammogram - [facility]. There are scattered fibroglandular elements in both breasts. Current study was also evaluated with a Computer Aided Detection (CAD) system. No significant masses, calcifications, or other findings are seen in either breast. There has been no significant interval change. IMPRESSION: NEGATIVE There is no mammographic evidence of malignancy. A 1 year screening mammogram is recommended. This exam was interpreted at Station ID: [id number]. NOTE: For mammograms, a report in lay terms will be sent to the patient. Approximately 15% of breast malignancies will not be visualized mammographically. In the management of a palpable breast mass, a negative mammogram must not discourage biopsy of a clinically suspicious lesion. Electronically Signed By: Cecil zaragoza/ellen:10/13/2019 17:52:33 letter sent: Normal Exam ACR BI-RADS Category 1: Negative 3341F
== END ==
PROVIDERS: PCP Family Medicine; Visit Provider Family Medicine
DX: Z12.31 Encounter for screening mammogram for malignant neoplasm of breast (principal); Z80.3 Family history of malignant neoplasm of breast
CPT/HCPCS: 77063; 77067

== ENCOUNTER → 2019-11-21 12:59 | Outpatient (CLI) | payer MEDICARE, SELFPAY ==
--- NOTE | 2019-11-21 13:01 | DI.RAD.S_ITS ---
PROCEDURE: XR FOOT LT MIN 3V INDICATIONS: r/o fracture TECHNIQUE: 3 views of the foot were acquired. COMPARISON: [facility], CR, XR FOOT LT MIN 3V, 02/26/2019, 14:11. FINDINGS: Bones: No fractures or dislocations. No suspicious bony lesions. Soft tissues: No tibiotalar joint effusion. Achilles tendon appears normal. IMPRESSION: No trauma found. A slight degree of joint space narrowing at the first MTP joint appears present, consistent with mild degenerative osteoarthritis. Please also refer to ankle plain film report from today discussing talar dome osteochondral defect. Dictated by: Lacho Waite M.D. on 11/21/2019 at 13:25 Approved by: Lacho Waite M.D. on 11/21/2019 at 13:26
--- NOTE | 2019-11-21 13:01 | DI.RAD.S_ITS ---
PROCEDURE: XR ANKLE LT MIN 3V INDICATIONS: r/o fracture TECHNIQUE: 3 views of the ankle were acquired. COMPARISON: [facility], CR, XR FOOT LT MIN 3V, 11/21/2019, 12:59. FINDINGS: Bones: No fractures or dislocations but there does appear to be a lucent osteochondral defect at the upper medial border of the talar dome, with central radiolucency measuring approximately 4 x 5 mm, and surrounding sclerosis mild in severity.. Ankle mortise is normally aligned. No suspicious bony lesions. Soft tissues: No tibiotalar joint effusion. Achilles tendon appears normal. IMPRESSION: No acute trauma found. Osteochondral defect superior medial talar dome which would warrant orthopedic surgical consultation and consideration of MR scanning for further anatomic characterization. Dictated by: Lacho Waite M.D. on 11/21/2019 at 13:23 Approved by: Lacho Waite M.D. on 11/21/2019 at 13:25
== END ==
PROVIDERS: PCP Family Medicine; Referring Provider Physician Assistant; Visit Provider Physician Assistant
DX: S99.912A Unspecified injury of left ankle, initial encounter (principal); M19.072 Primary osteoarthritis, left ankle and foot; X58.XXXA Exposure to other specified factors, initial encounter
CPT/HCPCS: 73610; 73630

== ENCOUNTER → 2020-04-16 08:14 | Outpatient (CLI) | payer MEDICARE, SELFPAY ==
[2020-04-16 10:44] LABS: Cholesterol 239 mg/dL (140-199); HDL Cholesterol 45 mg/dL (40-60); LDL Cholesterol Calculated 172 mg/dL (<100); Triglycerides 111 mg/dL (35-150)
== END ==
PROVIDERS: PCP Family Medicine; Referring Provider Family Medicine; Visit Provider Family Medicine
DX: E78.00 Pure hypercholesterolemia, unspecified (principal); E78.5 Hyperlipidemia, unspecified
CPT/HCPCS: 36415; 80061

== ENCOUNTER → 2020-08-21 11:31 | Outpatient (CLI) | payer MEDICARE, SELFPAY ==
[2020-08-21 13:43] LABS: Free T3, Triiodothyronine Free 2.89 pg/mL (2.77-5.27); Free T4, Direct Thyroxine 1.04 ng/dL (0.78-2.19)
[2020-08-21 13:57] LABS: Thyroid Stimulating Hormone 3.86 uIU/mL (0.47-4.68)
== END ==
PROVIDERS: PCP Family Medicine; Referring Provider Family Medicine; Visit Provider Family Medicine
DX: E03.9 Hypothyroidism, unspecified (principal)
CPT/HCPCS: 36415; 84439; 84443; 84481

== ENCOUNTER → 2020-10-14 15:44 | Outpatient (CLI) | payer MEDICARE, SELFPAY ==
--- NOTE | 2020-10-14 | DI.MG.S_ITS ---
BILATERAL DIGITAL SCREENING MAMMOGRAM 3D/2D WITH CAD: 10/14/2020 CLINICAL: Routine screening. Family history of breast cancer. Comparison is made to exams dated: 10/13/2019 mammogram, 10/09/2018 mammogram - [facility], and 08/21/2017 mammogram - [facility]. There are scattered fibroglandular elements in both breasts. Current study was also evaluated with a Computer Aided Detection (CAD) system. No significant masses, calcifications, or other findings are seen in either breast. There has been no significant interval change. IMPRESSION: NEGATIVE There is no mammographic evidence of malignancy. A 1 year screening mammogram is recommended. This exam was interpreted at Station ID: [id number]. NOTE: For mammograms, a report in lay terms will be sent to the patient. Approximately 15% of breast malignancies will not be visualized mammographically. In the management of a palpable breast mass, a negative mammogram must not discourage biopsy of a clinically suspicious lesion. Electronically Signed By: Grzegorz Scott acr/angelarad:10/14/2020 17:17:28 letter sent: Normal Exam ACR BI-RADS Category 1: Negative 3341F
== END ==
PROVIDERS: PCP Family Medicine; Referring Provider Family Medicine; Visit Provider Family Medicine
DX: Z12.31 Encounter for screening mammogram for malignant neoplasm of breast (principal); Z80.3 Family history of malignant neoplasm of breast
CPT/HCPCS: 77063; 77067

== ENCOUNTER → 2021-05-06 07:02 | Outpatient (CLI) | payer MEDICARE, SELFPAY ==
[2021-05-06 09:39] LABS: Cholesterol 239 mg/dL (140-199); HDL Cholesterol 56 mg/dL (40-60); LDL Cholesterol Calculated 162 mg/dL (<100); Triglycerides 107 mg/dL (35-150)
== END ==
PROVIDERS: PCP Family Medicine; Referring Provider Family Medicine; Visit Provider Family Medicine
DX: E78.2 Mixed hyperlipidemia (principal); E78.5 Hyperlipidemia, unspecified
CPT/HCPCS: 36415; 80061

== ENCOUNTER → 2021-10-17 15:40 | Outpatient (CLI) | payer MEDICARE, SELFPAY ==
--- NOTE | 2021-10-17 | DI.MG.S_ITS ---
BILATERAL DIGITAL SCREENING MAMMOGRAM 3D/2D WITH CAD: 10/17/2021 CLINICAL: Routine screening. Family history of breast cancer. Comparison is made to exams dated: 10/14/2020 mammogram, 10/14/2020 mammogram, and 10/13/2019 mammogram - [facility]. There are scattered fibroglandular elements in both breasts. Current study was also evaluated with a Computer Aided Detection (CAD) system. No significant masses, calcifications, or other findings are seen in either breast. There has been no significant interval change. IMPRESSION: NEGATIVE There is no mammographic evidence of malignancy. A 1 year screening mammogram is recommended. This exam was interpreted at Station ID: [id number]. NOTE: For mammograms, a report in lay terms will be sent to the patient. Approximately 15% of breast malignancies will not be visualized mammographically. In the management of a palpable breast mass, a negative mammogram must not discourage biopsy of a clinically suspicious lesion. Electronically Signed By: Thang Arechiga M.D., jr/ellen:10/17/2021 16:41:26 letter sent: Normal Exam ACR BI-RADS Category 1: Negative 3341F
== END ==
PROVIDERS: PCP Family Medicine; Referring Provider Family Medicine; Visit Provider Family Medicine
DX: Z12.31 Encounter for screening mammogram for malignant neoplasm of breast (principal)
CPT/HCPCS: 77063; 77067

== ENCOUNTER → 2022-07-13 06:52 | Outpatient (CLI) | payer MEDICARE, SELFPAY ==
[2022-07-13 08:15] LABS: Add Manual Diff / Slide Review NO; Basophils Absolute Auto 0 /uL (0-100); Basophils Percent Auto 0.8 % (0-2); Eosinophils Absolute Auto 500 /uL (0-450); Hematocrit 35.1 % (36-46); Hemoglobin 11.8 g/dL (12.0-16.0); Lymphocytes Absolute Auto 1600 /uL (1100-4500); Mean Corpuscular HGB Conc 33.6 % (30-36); Mean Corpuscular Hemoglobin 29.8 PG (26-34); Mean Corpuscular Volume 88.8 fL (80-100); Monocytes Absolute Auto 400 /uL (0-900); Monocytes Percent Auto 8.9 % (3-14); Neutrophils Absolute Auto 2100 /uL (1500-7000); Neutrophils Percent Auto 46.3 % (50-75); Platelet Count 301 X10^3/uL (150-400); Red Blood Cell Count 3.95 X10^6/uL (4.0-5.2); Red Cell Distribution Width 14.2 % (11.6-14.8); White Blood Cell Count 4.6 X10^3/uL (4.5-11.0)
[2022-07-13 08:39] LABS: Alanine Aminotransferase 27 IU/L (<35); Albumin 4.2 g/dL (3.5-5.0); Albumin Globulin Ratio 1.3 (1.0-2.8); Alkaline Phosphatase 52 U/L (38-126); Aspartate Aminotransferase 41 IU/L (14-36); BUN Creatinine Ratio 35.1 (6-22); Bilirubin Total 0.6 mg/dL (0.2-1.3); Blood Urea Nitrogen 26 mg/dL (7-17); Carbon Dioxide 29 mmol/L (22-32); Chloride 104 mmol/L (98-107); Cholesterol 245 mg/dL (140-199); Estimated Glomerular Filt Rate > 60 mL/min (>60); Globulin 3.2 g/dL (1.7-4.1); Glucose 91 mg/dL (80-110); HDL Cholesterol 50 mg/dL (40-60); HEMOLYSIS < 15 (0-50); LDL Cholesterol Calculated 172 mg/dL (<100); Potassium 4.2 mmol/L (3.4-5.1); Sodium 140 mmol/L (137-145); Total Protein 7.4 g/dL (6.3-8.2); Triglycerides 116 mg/dL (35-150)
[2022-07-13 08:46] LABS: Free T3, Triiodothyronine Free 2.82 pg/mL (2.77-5.27)
[2022-07-13 09:00] LABS: Thyroid Stimulating Hormone 2.62 uIU/mL (0.47-4.68)
== END ==
PROVIDERS: PCP Family Medicine; Referring Provider Family Medicine; Visit Provider Family Medicine
DX: E03.9 Hypothyroidism, unspecified (principal); E78.2 Mixed hyperlipidemia
CPT/HCPCS: 36415; 80053; 80061; 84439; 84443; 84481; 85025

== ENCOUNTER → 2022-11-03 14:54 | Outpatient (CLI) | payer MEDICARE, SELFPAY ==
--- NOTE | 2022-11-03 | DI.MG.S_ITS ---
BILATERAL DIGITAL SCREENING MAMMOGRAM 3D/2D WITH CAD: 11/03/2022 CLINICAL: Routine screening. Family history of breast cancer. Comparison is made to exams dated: 10/17/2021 mammogram, 10/14/2020 mammogram, 10/13/2019 mammogram, and 10/09/2018 mammogram - [facility]. There are scattered areas of fibroglandular density in both breasts (category b / 25%-50% glandular tissue). Current study was also evaluated with a Computer Aided Detection (CAD) system. No significant masses, calcifications, or other findings are seen in either breast. There has been no significant interval change. IMPRESSION: NEGATIVE There is no mammographic evidence of malignancy. A 1 year screening mammogram is recommended. Based on the Tyrer Cuzick model (a risk assessment model) the patient's lifetime risk is 9.3% and her 10 year risk is 7.0%. According to the ACR, ACS, and NCCN guidelines, an annual breast MRI exam along with mammogram is recommended if the patient's lifetime risk is 20% or greater. This exam was interpreted at Station ID: [id number]. NOTE: For mammograms, a report in lay terms will be sent to the patient. Approximately 15% of breast malignancies will not be visualized mammographically. In the management of a palpable breast mass, a negative mammogram must not discourage biopsy of a clinically suspicious lesion. Electronically Signed By: Madni kamara/ellen:11/03/2022 16:21:39 letter sent: Normal Exam ACR BI-RADS Category 1: Negative 3341F
== END ==
PROVIDERS: PCP Family Medicine; Referring Provider Family Medicine; Visit Provider Family Medicine
DX: Z12.31 Encounter for screening mammogram for malignant neoplasm of breast (principal); Z80.3 Family history of malignant neoplasm of breast
CPT/HCPCS: 77063; 77067

== ENCOUNTER → 2023-01-03 06:59 | Outpatient (CLI) | payer MEDICARE, SELFPAY ==
[2023-01-03 08:45] LABS: Cholesterol 234 mg/dL (140-199); HDL Cholesterol 50 mg/dL (40-60); LDL Cholesterol Calculated 164 mg/dL (<100); Triglycerides 102 mg/dL (35-150)
== END ==
PROVIDERS: PCP Family Medicine; Referring Provider Family Medicine; Visit Provider Family Medicine
DX: E78.2 Mixed hyperlipidemia (principal); F41.1 Generalized anxiety disorder; M62.89 Other specified disorders of muscle
CPT/HCPCS: 36415; 80061

== ENCOUNTER → 2023-09-14 14:49 | Outpatient (CLI) | payer MEDICARE, SELFPAY ==
--- NOTE | 2023-09-14 14:52 | DI.RAD.S_ITS ---
PROCEDURE: XR FOOT LT MIN 3V INDICATIONS: BILATERAL FOOT PAIN TECHNIQUE: Three views of the foot were acquired. COMPARISON: [facility], CR, XR FOOT LT MIN 3V, 11/21/2019, 12:59. [facility], CR, XR FOOT LT MIN 3V, 02/26/2019, 14:11. FINDINGS: Bones: No acute fractures or dislocations. No suspicious bony lesions. Moderate hallux valgus and lateral subluxation of the hallux sesamoids. Mild degenerative changes of the 1st metatarsophalangeal joint and throughout the interphalangeal joints of the toes. Borderline pes planus. Soft tissues: No tibiotalar joint effusion. Achilles tendon appears normal. IMPRESSION: 1. Moderate hallux valgus and mild 1st metatarsophalangeal joint osteoarthrosis. 2. Borderline pes planus. Approved by: Vega Lund M.D. on 09/14/2023 at 16:50
--- NOTE | 2023-09-14 14:52 | DI.RAD.S_ITS ---
PROCEDURE: XR FOOT RT MIN 3V INDICATIONS: BILATERAL FOOT PAIN TECHNIQUE: 4 views of the foot were acquired. COMPARISON: None. FINDINGS: Bones: No acute fractures or dislocations. No suspicious bony lesions. Mild hallux valgus and medial bunion. Chronic erosions are seen at the medial 1st metatarsal head. Mild pes planus. Scattered degenerative changes are seen at the interphalangeal joints of the toes and at the 1st metatarsophalangeal joint. There is mild lateral subluxation of the hallux sesamoids. Soft tissues: No suspicious soft tissue calcification. IMPRESSION: 1. Mild hallux valgus and mild degenerative changes at the 1st metatarsophalangeal joint. Mild lateral subluxation of the hallux sesamoids. 2. Mild pes planus. Approved by: Vega Lund M.D. on 09/14/2023 at 16:49
== END ==
PROVIDERS: PCP Family Medicine; Referring Provider Podiatrist Foot & Ankle Surgery; Visit Provider Podiatrist Foot & Ankle Surgery
DX: M20.12 Hallux valgus (acquired), left foot (principal); M20.11 Hallux valgus (acquired), right foot; M21.611 Bunion of right foot; M21.41 Flat foot [pes planus] (acquired), right foot; M79.672 Pain in left foot; M79.671 Pain in right foot; M19.072 Primary osteoarthritis, left ankle and foot
CPT/HCPCS: 73630

== ENCOUNTER → 2023-10-26 11:38 | Outpatient (CLI) | payer MEDICARE, SELFPAY ==
[2023-10-26 13:07] LABS: Add Manual Diff / Slide Review NO; Basophils Absolute Auto 0 /uL (0-100); Eosinophils Absolute Auto 100 /uL (0-450); Eosinophils Percent Auto 2.2 % (2-4); Hematocrit 36.2 % (36-46); Hemoglobin 12.3 g/dL (12.0-16.0); Lymphocytes Absolute Auto 1500 /uL (1100-4500); Lymphocytes Percent Auto 34.8 % (25-40); Mean Corpuscular HGB Conc 33.9 % (30-36); Mean Corpuscular Volume 88.5 fL (80-100); Monocytes Absolute Auto 400 /uL (0-900); Monocytes Percent Auto 8.7 % (3-14); Neutrophils Absolute Auto 2300 /uL (1500-7000); Neutrophils Percent Auto 53.3 % (50-75); Platelet Count 319 X10^3/uL (150-400); Red Blood Cell Count 4.09 X10^6/uL (4.0-5.2); Red Cell Distribution Width 14.3 % (11.6-14.8); White Blood Cell Count 4.4 X10^3/uL (4.5-11.0)
[2023-10-26 13:37] LABS: Alanine Aminotransferase 44 IU/L (<35); Albumin 4.5 g/dL (3.5-5.0); Albumin Globulin Ratio 1.3 (1.0-2.8); Alkaline Phosphatase 55 U/L (38-126); Aspartate Aminotransferase 49 IU/L (14-36); BUN Creatinine Ratio 35.4 (6-22); Bilirubin Total 0.6 mg/dL (0.2-1.3); Blood Urea Nitrogen 23 mg/dL (7-17); Calcium 9.6 mg/dL (8.4-10.2); Carbon Dioxide 31 mmol/L (22-32); Chloride 99 mmol/L (98-107); Cholesterol 273 mg/dL (140-199); Estimated Glomerular Filt Rate > 60 mL/min (>60); Globulin 3.6 g/dL (1.7-4.1); Glucose 87 mg/dL (80-110); HDL Cholesterol 50 mg/dL (40-60); HEMOLYSIS < 15 (0-50); LDL Cholesterol Calculated 198 mg/dL (<100); Potassium 4.4 mmol/L (3.4-5.1); Sodium 138 mmol/L (137-145); Total Protein 8.1 g/dL (6.3-8.2); Triglycerides 126 mg/dL (35-150)
[2023-10-26 14:08] LABS: TSH w/ Reflex to FT4 2.52 uIU/mL (0.47-4.68)
== END ==
PROVIDERS: PCP Family Medicine; Referring Provider Family Medicine; Visit Provider Family Medicine
DX: E03.9 Hypothyroidism, unspecified (principal); E78.2 Mixed hyperlipidemia
CPT/HCPCS: 36415; 80053; 80061; 84443; 85025

== ENCOUNTER → 2023-11-12 08:18 | Outpatient (CLI) | payer MEDICARE, SELFPAY ==
--- NOTE | 2023-11-12 | DI.MG.S_ITS ---
BILATERAL DIGITAL SCREENING MAMMOGRAM 3D/2D WITH CAD: 11/12/2023 Comparison is made to exams dated: 11/03/2022 mammogram, 10/17/2021 mammogram, and 10/14/2020 mammogram - [facility]. There are scattered areas of fibroglandular density in both breasts (category b / 25%-50% glandular tissue). Current study was also evaluated with a Computer Aided Detection (CAD) system. No significant masses, calcifications, or other findings are seen in either breast. There has been no significant interval change. IMPRESSION: NEGATIVE There is no mammographic evidence of malignancy. A 1 year screening mammogram is recommended. Based on the Tyrer Cuzick model (a risk assessment model) the patient's lifetime risk is 8.7% and her 10 year risk is 7.2%. According to the ACR, ACS, and NCCN guidelines, an annual breast MRI exam along with mammogram is recommended if the patient's lifetime risk is 20% or greater. This exam was interpreted at Station ID: [id number]. NOTE: For mammograms, a report in lay terms will be sent to the patient. Approximately 15% of breast malignancies will not be visualized mammographically. In the management of a palpable breast mass, a negative mammogram must not discourage biopsy of a clinically suspicious lesion. Electronically Signed By: Jovon gruber/ellen:11/12/2023 09:06:16 letter sent: Normal Exam ACR BI-RADS Category 1: Negative 3341F
== END ==
LOC: MAMMO 08:20
PROVIDERS: PCP Family Medicine; Referring Provider Family Medicine; Visit Provider Family Medicine
DX: Z12.31 Encounter for screening mammogram for malignant neoplasm of breast (principal); R92.323 Mammographic fibroglandular density, bilateral breasts
CPT/HCPCS: 77063; 77067

== ENCOUNTER → 2023-11-28 06:59 | Outpatient (CLI) | payer MEDICARE, SELFPAY ==
[2023-11-28 08:43] LABS: C-Reactive Protein Quant 0.5 mg/dL (<1.0)
[2023-11-29 08:12] LABS: Homocysteine 9.8 umol/L (0.0-19.2)
[2023-12-13 07:49] LABS: Cholesterol,Total 281
[2023-12-13 07:51] LABS: HDL Cholesterol 52
[2023-12-13 07:53] LABS: Non-HDL Cholesterol 229
[2023-12-13 07:54] LABS: Triglycerides 112
== END ==
PROVIDERS: PCP Family Medicine; Referring Provider Family Medicine; Visit Provider Family Medicine
DX: E78.5 Hyperlipidemia, unspecified (principal); R09.89 Other specified symptoms and signs involving the circulatory and respiratory systems; Z91.89 Other specified personal risk factors, not elsewhere classified
CPT/HCPCS: 36415; 80061; 83090; 83704; 83721; 86140

== ENCOUNTER → 2024-01-08 11:06 | Outpatient (CLI) | payer MEDICARE, SELFPAY ==
--- NOTE | 2024-01-08 11:22 | DI.RAD.S_ITS ---
PROCEDURE: XR CHEST 2V INDICATIONS: cough x 11 days TECHNIQUE: 2 views of the chest were acquired. COMPARISON: [facility], CR, XR CHEST 1V, 08/11/2019, 8:43. FINDINGS: Surgical changes and devices: None. Lungs and pleura: Lungs are clear. No pleural effusions or pneumothorax. Mediastinum: Mediastinal contours are normal. Heart size is normal. Bones and chest wall: No suspicious bony abnormalities. Soft tissues appear unremarkable. IMPRESSION: No acute cardiopulmonary abnormality. Dictated by: Tonia Gaston M.D. on 01/08/2024 at 17:29 Approved by: Tonia Gaston M.D. on 01/08/2024 at 17:29
[2024-01-08 11:56] LABS: Influenza A - CEPHEID Flu A NEGATIVE (NEGATIVE); Influenza B - CEPHEID Flu B NEGATIVE (NEGATIVE); Respiratory Syncytial Virus Negative (Negative)
[2024-01-08 11:57] LABS: COVID-19 CEPHEID 4-PLEX PCR Negative (Negative)
== END ==
PROVIDERS: PCP Family Medicine; Referring Provider Physician Assistant; Visit Provider Physician Assistant
DX: R05.9 Cough, unspecified (principal); J06.9 Acute upper respiratory infection, unspecified
CPT/HCPCS: 0241U; 71046

== ENCOUNTER → 2024-06-04 13:31 | Outpatient (CLI) | payer MEDICARE, SELFPAY ==
[2024-06-04 19:02] LABS: Vitamin B12 Reflex MMA if <400 336 pg/mL (239-931)
== END ==
PROVIDERS: PCP Family Medicine; Referring Provider Family Medicine; Visit Provider Family Medicine
DX: F41.1 Generalized anxiety disorder (principal); R41.3 Other amnesia
CPT/HCPCS: 36415; 82607; 83921

== ENCOUNTER → 2024-06-26 11:02 | Outpatient (CLI) | payer MEDICARE, SELFPAY ==
--- NOTE | 2024-06-26 11:04 | DI.MRI.S_ITS ---
PROCEDURE: MR HEAD/BRAIN WO CON INDICATIONS: memory change, word finding difficulty TECHNIQUE: Non-contrast axial T1 spin echo, axial T2 fast spin echo, sagittal and axial FLAIR, coronal T2 fast spin echo, axial gradient echo, axial diffusion and ADC through the brain. COMPARISON: MR, MR BRAIN WITH/WITHOUT CONTRAST, 05/08/2019, 9:43. FINDINGS: Image quality: This examination is limited by involuntary motion artifact. CSF spaces: Ventricles appear symmetric in size and shape. Basal cisterns are patent. No extra-axial fluid collections. Brain: No intracranial bleeds or mass effects. There is cerebral volume loss for age. There are periventricular and deep white matter chronic small vessel ischemic changes. Brainstem appears normal. Diffusion-weighted images show no acute infarct. No chronic ischemic insults. Normal intravascular flow voids are present. Skull and face: Calvarial bone marrow is normal in signal. Orbits are normal. Note is made of bilateral lens replacements. Sinuses: Sinuses and mastoids are clear. IMPRESSION: Normal intracranial study for age, similar to prior. Dictated by: Jr Bhatia M.D. on 06/26/2024 at 12:21 Approved by: Jr Bhatia M.D. on 06/26/2024 at 12:25
== END ==
PROVIDERS: PCP Family Medicine; Referring Provider Family Medicine; Visit Provider Family Medicine
DX: R41.3 Other amnesia (principal); R47.89 Other speech disturbances
CPT/HCPCS: 70551

== ENCOUNTER → 2024-11-20 12:56 | Outpatient (CLI) | payer MEDICARE, SELFPAY ==
--- NOTE | 2024-11-20 12:58 | DI.MG.S_ITS ---
BILATERAL DIGITAL SCREENING MAMMOGRAM 3D/2D WITH CAD: 11/20/2024 CLINICAL: Routine screening. Family history of breast cancer. Comparison is made to exams dated: 11/12/2023 mammogram, 11/03/2022 mammogram, and 10/17/2021 mammogram - [facility]. There are scattered areas of fibroglandular density (category b / 25%-50% glandular tissue). Current study was also evaluated with a Computer Aided Detection (CAD) system. No significant masses, calcifications, or other findings are seen in either breast. There has been no significant interval change. IMPRESSION: NEGATIVE There is no mammographic evidence of malignancy. A 1 year screening mammogram is recommended. Based on the Tyrer Cuzick model (a risk assessment model) the patient's lifetime risk is 8.2% and her 10 year risk is 7.4%. According to the ACR, ACS, and NCCN guidelines, an annual breast MRI exam along with mammogram is recommended if the patient's lifetime risk is 20% or greater. This exam was interpreted at Station ID: [id number]. NOTE: For mammograms, a report in lay terms will be sent to the patient. Approximately 15% of breast malignancies will not be visualized mammographically. In the management of a palpable breast mass, a negative mammogram must not discourage biopsy of a clinically suspicious lesion. Electronically Signed By: Carisa sheets/ellen:11/20/2024 17:49:21 letter sent: Normal Exam ACR BI-RADS Category 1: Negative
== END ==
PROVIDERS: PCP Family Medicine; Referring Provider Family Medicine; Visit Provider Family Medicine
DX: Z12.31 Encounter for screening mammogram for malignant neoplasm of breast (principal); Z80.3 Family history of malignant neoplasm of breast
CPT/HCPCS: 77063; 77067

== ENCOUNTER → 2025-03-29 12:45 | Outpatient (CLI) | payer MEDICARE, SELFPAY ==
[2025-03-29 13:41] LABS: COVID-19 CEPHEID 4-PLEX PCR POSITIVE (Negative); Influenza A - CEPHEID Flu A NEGATIVE (NEGATIVE); Influenza B - CEPHEID Flu B NEGATIVE (NEGATIVE); Respiratory Syncytial Virus Negative (Negative)
== END ==
PROVIDERS: PCP Family Medicine; Visit Provider Chiropractor
DX: J02.9 Acute pharyngitis, unspecified (principal); R05.1 Acute cough
CPT/HCPCS: 0241U; 87070

== ENCOUNTER → 2025-06-10 14:44 | Outpatient (CLI) | payer MEDICARE, SELFPAY ==
[2025-06-10 15:11] LABS: Add Manual Diff / Slide Review NO; Hematocrit 34.4 % (36-46); Hemoglobin 11.6 g/dL (12.0-16.0); Lymphocytes Absolute Auto 1600 /uL (1100-4500); Mean Corpuscular HGB Conc 33.7 % (30-36); Mean Corpuscular Hemoglobin 29.7 PG (26-34); Mean Corpuscular Volume 88.0 fL (80-100); Platelet Count 349 X10^3/uL (150-400)
[2025-06-10 15:30] LABS: Alanine Aminotransferase 30 IU/L (<35); Albumin 4.2 g/dL (3.5-5.0); Albumin Globulin Ratio 1.4 (1.0-2.8); Alkaline Phosphatase 57 U/L (38-126); Blood Urea Nitrogen 22 mg/dL (7-17); Calcium 9.2 mg/dL (8.4-10.2); Carbon Dioxide 27 mmol/L (22-32); Chloride 101 mmol/L (98-107); Estimated Glomerular Filt Rate > 60 mL/min (>60); Globulin 2.9 g/dL (1.7-4.1); Glucose 124 mg/dL (70-99); HEMOLYSIS < 15 (0-50); Potassium 3.7 mmol/L (3.4-5.1); Sodium 137 mmol/L (137-145); Total Protein 7.1 g/dL (6.3-8.2)
[2025-06-10 16:06] LABS: Total Iron Binding Capacity 369 ug/dL (265-497); Transferrin 318 mg/dL (206-381)
[2025-06-10 16:07] LABS: HEMOLYSIS 137 (0-50)
[2025-06-10 16:35] LABS: Vitamin D 25 Hydroxy (D3) 47.1 ng/mL (30.0-100.0)
[2025-06-10 21:51] LABS: Iron 104 ug/dL (37-170)
[2025-06-10 22:01] LABS: Percent Iron Saturation 28 % (15-50)
== END ==
PROVIDERS: PCP Family Medicine; Referring Provider Family Medicine; Visit Provider Family Medicine
DX: Z00.00 Encounter for general adult medical examination without abnormal findings (principal); E78.00 Pure hypercholesterolemia, unspecified; Z78.0 Asymptomatic menopausal state; R53.83 Other fatigue
CPT/HCPCS: 36415; 80053; 82306; 83540; 83550; 85025

== ENCOUNTER → 2025-07-13 14:01 | Outpatient (CLI) | payer MEDICARE, SELFPAY ==
--- NOTE | 2025-07-13 14:09 | DI.RAD.S_ITS ---
PROCEDURE: XR SHOULDER RT MIN 2V INDICATIONS: chronic R shoulder pain, worsening restriction ROM TECHNIQUE: 3 views of the shoulder were acquired. COMPARISON: None. FINDINGS: Severe degenerative change of the glenohumeral joint. Mild degenerative change at the acromioclavicular joint with step-off. No dislocation. No acute fracture. IMPRESSION: Degenerative arthritis Dictated by: Ganga Hicks M.D. on 07/13/2025 at 15:32 Approved by: Ganga Hicks M.D. on 07/13/2025 at 15:34
== END ==
LOC: RAD 14:09
PROVIDERS: PCP Family Medicine; Referring Provider Family Medicine; Visit Provider Family Medicine
DX: M19.011 Primary osteoarthritis, right shoulder (principal); M25.611 Stiffness of right shoulder, not elsewhere classified
CPT/HCPCS: 73030

== ENCOUNTER → 2025-08-03 12:07 | Outpatient (CLI) | payer MEDICARE, SELFPAY ==
--- NOTE | 2025-08-03 12:08 | DI.RAD.S_ITS ---
PROCEDURE: FL JOINT INJECTION LARGE RT INDICATIONS: right hip steriod injection COMPARISON: None. TECHNIQUE: The indications, alternatives, benefits, risks, and complications of the procedure were explained to the patient. Written informed consent was obtained and placed in the chart. The patient was placed in an appropriate position on the fluoroscopy table, and a site was chosen for percutaneous access under fluoroscopic guidance. The site was prepped and draped in a sterile fashion. Local anesthetic was administered using a 1% lidocaine solution. A hypodermic or spinal needle was then used to access the symptomatic joint. Intra-articular location of the needle tip was confirmed by injecting a small amount of contrast, followed by steroid administration. The needle was then withdrawn, and a bandage applied to the puncture site. FINDINGS: Joint injected: Right hip Medications injected: 4 mL of 40 mg/mL Kenalog and 0.5% Ropivacaine mixture. Patient's pain before injection: 6 out of 10. Patient's pain after injection: 0 out of 10. Complications: None. IMPRESSION: Successful fluoroscopically guided administration of steroid and anaesthetic solution into the right hip joint. Dictated by: Criss Rodriguez M.D. on 08/03/2025 at 15:59 Approved by: Criss Rodriguez M.D. on 08/03/2025 at 16:00
== END ==
LOC: RAD 12:08
PROVIDERS: PCP Family Medicine; Referring Provider Orthopaedic Surgery Adult Reconstructive Orthopaedic Surgery; Visit Provider Orthopaedic Surgery Adult Reconstructive Orthopaedic Surgery
DX: M25.551 Pain in right hip (principal)
CPT/HCPCS: 20610; 77002

== ENCOUNTER → 2025-09-05 10:36 | Outpatient (CLI) | payer MEDICARE, SELFPAY ==
[2025-09-05 10:47] LABS: Add Manual Diff / Slide Review NO; Hematocrit 37.8 % (36-46); Hemoglobin 12.8 g/dL (12.0-16.0); Lymphocytes Absolute Auto 1800 /uL (1100-4500); Mean Corpuscular HGB Conc 33.8 % (30-36); Mean Corpuscular Hemoglobin 29.4 PG (26-34); Mean Corpuscular Volume 87.2 fL (80-100); Platelet Count 394 X10^3/uL (150-400)
[2025-09-05 11:14] LABS: Cholesterol 295 mg/dL (140-199); HDL Cholesterol 66 mg/dL (40-60); Triglycerides 143 mg/dL (35-150)
[2025-09-05 11:45] LABS: TSH w/ Reflex to FT4 2.70 uIU/mL (0.47-4.68)
[2025-09-05 12:04] LABS: Vitamin B12 873 pg/mL (239-931)
== END ==
PROVIDERS: PCP Family Medicine; Referring Provider Family Medicine; Visit Provider Family Medicine
DX: R53.83 Other fatigue (principal); E78.00 Pure hypercholesterolemia, unspecified; E03.9 Hypothyroidism, unspecified
CPT/HCPCS: 36415; 80061; 82607; 84443; 85025

== ENCOUNTER → 2025-09-22 19:09 | Outpatient (CLI) | payer MEDICARE, SELFPAY ==
--- NOTE | 2025-09-22 19:12 | DI.MRI.S_ITS ---
PROCEDURE: MR HEAD/BRAIN WO/W CON INDICATIONS: olfactory/visual hallucinations TECHNIQUE: Noncontrast axial T1 spin echo, axial T2 fast spin echo, sagittal and axial FLAIR, coronal T2 fast spin echo, axial gradient echo, axial diffusion and ADC through the brain. After the administration of contrast, axial and coronal and sagittal T1 spin echo with fat saturation through the brain. COMPARISON: [facility], MR, MR HEAD/BRAIN WO CON, 06/26/2024, 12:02. FINDINGS: Image quality: Excellent. CSF spaces: Basal cisterns are patent. No extra-axial fluid collections. Ventricles are normal in size and shape. Brain: No midline shift. No intracranial bleeds or masses. No abnormal intracranial enhancement. There is cerebral volume loss for age. There is periventricular white matter chronic small vessel ischemic change. The brainstem appears normal. Diffusion-weighted images demonstrate no acute infarct. No chronic ischemic insults. Normal intravascular flow voids are present. Skull and face: Calvarial marrow is normal in signal. Macro limb Sinuses: Sinuses and mastoids appear clear. IMPRESSION: No acute intracranial abnormalities or abnormal intracranial enhancement. Mild age-appropriate global volume loss and chronic microvascular ischemic change. Approved by: Christiano Anderson M.D. on 09/23/2025 at 8:25
== END ==
PROVIDERS: PCP Family Medicine; Referring Provider Family Medicine; Visit Provider Family Medicine
DX: R44.1 Visual hallucinations (principal); R44.2 Other hallucinations
CPT/HCPCS: 70553; A9579